=== PATIENT | male | born 1970 | race Caucasian/White ===

== ENCOUNTER 2017-12-07 21:58 | Emergency (ER) | payer MEDICAID ==
[~2017-12-07] VITALS: Ht 188 cm; Wt 90.0 kg
[2017-12-07] MEDS ORDERED: DIPH,PERTUSS(ACELL),TET VAC/PF 0.5 ML IM-VACC ONE ×2 (22:16→22:30)
[2017-12-07] MEDS ORDERED: LIDOCAINE-MPF 2%, 2ML ONE (22:18)
[2017-12-07] MEDS ORDERED: PLEASE ENTER HEIGHT AND WEIGHT MC SCH (22:30)
[2017-12-07] MEDS ORDERED: LIDOCAINE-MPF 1%, 5ML INFIL ONE (22:30)
[2017-12-07 22:51] VITALS: BP 137/56
== END 2017-12-08 00:52 | disposition left against medical advice (07) ==
LOC: ED 12-08
DX: S06.0X0A Concussion without loss of consciousness, initial encounter (principal); S00.03XA Contusion of scalp, initial encounter; F10.10 Alcohol abuse, uncomplicated; W18.39XA Other fall on same level, initial encounter; Y93.89 Activity, other specified; Y92.59 Other trade areas as the place of occurrence of the external cause; Y99.8 Other external cause status
CPT/HCPCS: 70450; 72125; 90471; 90715; 99284